=== PATIENT | male | born 1960 ===

== ENCOUNTER 2023-08-30 03:26 | Outpatient (RCR) | payer MEDICAID, SELFPAY ==
[2023-08-23] MEDS: DALBAVANCIN 1,500 MG in DEXTROSE 5%-WATER 325 ML 650 MG IVPB (14:09)
[2023-08-23] MEDS: Normal Saline Flush 10 ML SYR IVP (14:57)
[2023-08-30] MEDS: DALBAVANCIN 1,500 MG in DEXTROSE 5%-WATER 325 ML 650 MG IVPB (13:07)
[2023-08-30] MEDS: Normal Saline Flush 10 ML SYR IVP (13:07)
== END 2023-09-14 23:59 | disposition home or self-care (01) ==
LOC: INF 03:26
PROVIDERS: PCP Nurse Practitioner Family; Visit Provider Nurse Practitioner Acute Care
DX: M86.172 Other acute osteomyelitis, left ankle and foot (principal)
CPT/HCPCS: 96365; J0875